=== PATIENT | female | born 1950 | race Caucasian/White ===

== ENCOUNTER → 2017-01-30 | Outpatient (CLI) | payer OTHER ==
[~2017-01-30] MED LIST: ACTOS; ADVICOR 5001 BOTTLE PO; ASPIRIN; ASPIRIN PO; BYETTA10 MCG/0.0; CALCIUM 500 + D1 TAB PO; DIOVAN HCT 160/1 TAB; DIOVAN PO; GLUCOPHAGE XR500 MG; LASIX; NEURONTIN; NITROGYLCERIN; NORVASC; PAXIL CR; PLAVIX; SULAR PO; TOPROL XL; VIT B-12 PO; ZOCOR; [UNRECOGNIZED DRUG - OTHER]
--- NOTE | ~2017-01-30 | MR113 ---
[facility] A Service of [facility] RADIOLOGY TEXT RESULTS PATIENT: PHILOMENA HASSAN LOCATION: [facility] : 50 UNIT #: [id number] AGE: [address]: GARCÍA BERNARD SEX: F ORDER DR: [id number] [address] [address] [id number] O MR#: [id number] Acc #: [id number] NAME: PHILOMENA HASSAN : 1950 SEX: F STUDY DATE/TIME: 01/30/2017 11:15 UNIT: [facility] ROOM: STUDY DESCRIPTION: MR Lumbar Wo Contrast Attending Physician: García Bernard M.D. Referring Physician: García Bernard M.D. Ordering Physician: Staff Doctor Not On Primary Care Physician: García Bernrad M.D. MRI CENTER REPORT This report is preliminary unless electronic signature is present. EXAM Lumbar spine MRI without HISTORY Increasing low back pain for 3 weeks down into left lower extremity. No cancer history. No trauma history. No lumbar spine surgery history. COMMENT MRI of the lumbar spine performed without contrast using routine 1.5T wide-bore imaging technique. No previous. Sagittal alignment is normal. The intervertebral discs are desiccated in general. Multilevel loss of intervertebral disc height most prominent at T12-L1 and L1-2 where it is approximately moderate with a Schmorl's node formation. Bone marrow signal intensity is unremarkable. The conus medullaris terminates L1-2 and is normal in size and signal intensity. At T12-L1, there is a large extrusion in a right paramedian location which results in mild cord flattening and canal stenosis with some displacement of the conus towards the left side posterolaterally. This extrusion measures about 7 mm AP dimension, 8 mm SI dimension, and 12 mm ML dimension. Only mild facet degenerative change and no foraminal impingement. The extrusion remains contiguous with the disc and extends predominately cephalad from the disc. At L1-2, there is mild left and moderate right-side facet degenerative change with ligamentum flavum thickening. There is a frhf-hy-kqishbsg concentric disc bulge and endplate spondylosis with a more focal right paramedian protrusion/extrusion remaining contiguous with the disc and extending above and below the level of the disc. There is also asymmetric right-side ligamentum flavum thickening and combination of findings result in mild canal stenosis asymmetrically worse to the right side with particular mass effect on the right lateral recess. Inferior foraminal STS. [facility] A Service of [facility] RADIOLOGY TEXT RESULTS PATIENT: PHILOMENA HASSAN LOCATION: [facility] : 50 UNIT #: [id number] AGE: [address]: GARCÍA BERNARD SEX: F ORDER DR: narrowing bilaterally. At L2-3, zeds-mb-arengrwv bilateral facet degenerative change, mild ligamentum flavum thickening on concentric disc bulging with a more prominent broad-based posterior component. Findings result in mild canal stenosis and effacement of the bilateral-lateral recesses. No significant foraminal impingement. L3-4, approximately moderate right and aoxj-yi-esmlivmh left-side facet arthritis and moderate ligamentum flavum thickening. There is concentric disc bulge with superimposed broad posterior protrusion/extrusion with annular fissure extending slightly caudad from the disc level but remaining contiguous with it. The combination of findings result in gctjvzzt-gx-kikian central canal stenosis with mass effect on the bilateral-lateral recesses. There is approximately moderate right greater than left-sided foraminal narrowing. L4-5, moderate facet degenerative change bilaterally with moderate ligamentum flavum thickening. There is a mild concentric disc bulge with a superimposed left paramedian posterolateral extrusion extending cephalad from this level remaining, for the most part, contiguous with it. There is 1 fragment of disc material extending cephalad left side posterolaterally which could be sequestered if surgery is performed. The combination of findings results in moderate canal stenosis with mass effect on the left lateral recess and severe left-sided foraminal impingement. The disc extrusion significantly contributes to this. Phfp-zw-krnlczyi right-sided foraminal narrowing. L5-S1, fairly severe right more moderate left-side facet arthritis with witc-qe-dqdouxfj ligamentum flavum thickening. Mild broad-based posterior disc protrusion. No canal stenosis. Disc material extends into the inferior foramina and there is approximately moderate right and guduxcfl-kl-nziueh left-side foraminal impingement. Partly seen are bilateral renal cysts. IMPRESSION 1. There is significant multilevel lumbar degenerative disease with multilevel canal stenosis and foraminal compromise. The canal stenosis is most severe at L3-4 estimated meyprxoh-bm-blswqz. Please refer, however, to the multilevel description of findings including focal extrusions at T12-L1 and L1-2. Also particular left-sided 4-5 foraminal impingement related to combination of findings including a leftward disc extrusion. See above. STAT * RESULT [facility] A Service of [facility] RADIOLOGY TEXT RESULTS PATIENT: PHILOMENA HASSAN LOCATION: [facility] #: [id number] : 50 UNIT #: [id number] AGE: [address]: GARCÍA BERNARD SEX: F ORDER DR: Dictated by... Laurie Marin M.D. THIS IS AN ELECTRONICALLY VERIFIED REPORT Laurie Marin M.D. at 01/30/2017 5:31 PM LESLIE/pamela TD: 01/30/2017 15:52 JOB #: [id number] MRI CENTER REPORT
== END | disposition home or self-care (01) ==
LOC: SMRI 10:44
DX: M54.16 Radiculopathy, lumbar region (principal); M51.16 Intervertebral disc disorders with radiculopathy, lumbar region; M48.06 Spinal stenosis, lumbar region
CPT/HCPCS: 72148

== ENCOUNTER → 2017-05-01 | Outpatient (CLI) | payer OTHER ==
--- NOTE | ~2017-05-01 | CT3 ---
[facility] A Service [facility] RADIOLOGY TEXT RESULTS PATIENT: PHILOMENA HASSAN LOCATION: [facility] : 50 UNIT #: [id number] AGE: [address]: GARCÍA BERNARD SEX: F ORDER DR: [id number] [place] [id number] [facility]. [place], [place] [address] [id number] O MR#: [id number] Acc #: [id number] NAME: PHILOMENA HASSAN : 1950 SEX: F STUDY DATE/TIME: 05/01/2017 10:45 UNIT: [facility] ROOM: STUDY DESCRIPTION: CT Abd and Pelv WWo Cont Attending Physician: García Bernard M.D. Referring Physician: García Bernard M.D. Primary Care Physician: García Bernard M.D. MEDICAL IMAGING REPORT This report is preliminary unless electronic signature is present EXAMINATION CT abdomen and pelvis without and with contrast. DATE 05/01/2017 HISTORY Left flank pain for 4 months. History of kidney stones. Hydronephrosis. Hypertension. Diabetes. COMPARISON MRI lumbar spine 01/30/2017. No prior CT of abdomen and pelvis at this institution for comparison. PROCEDURE Precontrast imaging through the abdomen and pelvis. Dynamic postcontrast imaging through the abdomen with attention to the kidneys. Postcontrast excretory phase imaging through the pelvis. Sagittal and coronal reformatted images were obtained. Enteric contrast was not administered. This CT exam was performed with one or more of the following radiation dose reduction techniques: automatic exposure control, adjustment of mA and/or kV according to patient size, and iterative reconstruction. FINDINGS ABDOMEN FINDINGS: On noncontrast imaging, there is no renal or ureteral stone. On postcontrast imaging, there is no indication of hydronephrosis or hydroureter. No suspicious enhancing solid renal mass is identified. Simple cyst in the anterior right mid kidney measures 3.6 cm. Simple benign cyst in the left lower renal pole measures 1.7 cm. [facility] A Service [facility] RADIOLOGY TEXT RESULTS PATIENT: PHILOMENA HASSAN LOCATION: [facility] #: [id number] : 50 UNIT #: [id number] AGE: [address]: GARCÍA BERNARD SEX: F ORDER DR: On delayed excretory phase imaging, there are no suspicious filling defects within the renal collecting systems or ureters, or within the urinary bladder. There may be a very tiny cystocele. Lung bases are clear. Heart size is within normal limits. Coronary artery calcifications are present. Signs of prior median sternotomy. The liver, gallbladder, spleen, pancreas, are within normal limits. There is mild left adrenal gland thickening without discrete nodularity, thought to represent mild hyperplasia. There is a macroscopic fat--soft tissue density nodule in the right adrenal gland measuring 2.3 cm, consistent with a benign myelolipoma. The bowel appears nonthickened, nondilated, noninflamed. Appendix is normal. No adenopathy. No free fluid. PELVIS FINDINGS: Uterus and rectum are within normal limits. Degenerative loss of disc height at L2-3. No acute osseous abnormalities. IMPRESSION 1. Single simple cysts are seen within each kidney. No suspicious enhancing renal mass. No hydronephrosis. 2. No urinary tract stone. No CT explanation of the patient's left flank pain. 3. Probable tiny cystocele. 4. Median sternotomy changes. Mild coronary artery calcifications. 5. Benign right adrenal myelolipoma. Benign left adrenal hyperplasia. Dictated by... Deb Alvarado M.D. THIS IS AN ELECTRONICALLY VERIFIED REPORT Deb Alvarado M.D. at 05/04/2017 1:22 PM MICHELET/leonela TD: 05/01/2017 19:46 JOB #: [id number] MEDICAL IMAGING REPORT Page 1 of 1 COPY
[2017-05-01 12:21] LABS: POC - CREATININE 0.55 mg/dL (0.44-1.03); POC - GFR >60.0 mL/min (>60)
== END | disposition home or self-care (01) ==
LOC: CCAT 10:03
PROVIDERS: Internal Medicine
DX: N13.39 Other hydronephrosis (principal); Q61.02 Congenital multiple renal cysts; I25.10 Atherosclerotic heart disease of native coronary artery without angina pectoris; D17.5 Benign lipomatous neoplasm of intra-abdominal organs; E27.8 Other specified disorders of adrenal gland; Z88.5 Allergy status to narcotic agent; Z88.2 Allergy status to sulfonamides
CPT/HCPCS: 74178; 82565; Q9967